=== PATIENT | female | born 1985 | race Asian ===

== ENCOUNTER 2016-11-17 11:36 | Outpatient (CLI) | payer OTHER ==
[~2016-11-17] VITALS: Ht 157.5 cm; Wt 66.8 kg
[2016-11-17 11:54] VITALS: Ht 157.5 cm; Wt 66.8 kg
[2016-11-17 11:58] VITALS: BP 112/79; PULSE 99; RESP 18
--- NOTE | 2016-11-17 13:32 | RADRPT ---
PROCEDURE: US OB. CLINICAL INDICATION: Size and dates , labor TECHNIQUE: Multiple sonographic images of the pelvis and gravid uterus were obtained. The images were reviewed on a PACS workstation. COMPARISON: No prior studies are available for comparison. FINDINGS: There is a single viable intrauterine gestation. Cardiac activity is present with 148 beats per min [place]. There is a vertex presentation. The placenta is posterior. There is no evidence for an abruption or placenta previa. There is a normal amount of amniotic fluid with an ANN = 19.1 cm. There is increased echogenicity of the amniotic fluid. Measurements were made in order to determine age. The results are as follows: BPD =9.5 cm HC =32.6 cm AC =33.7 cm FL =7.2 cm Estimated gestational age of approximately 37 weeks and 4 days based on ultrasound measurements. Clinical age: 37 weeks and 5 days. The estimated date of delivery is 12/04/2016, based on ultrasound measurements. The EFW = 3237 g, 55.8%, based on LMP age. RPTAT: AA IMPRESSION: Single viable intrauterine gestation of approximately 37 weeks and 4 days based on ultrasound measu rements. 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 Close follow-up is recommended. .Tima Samuels MD, Date Time Electronically viewed and signed by .Tima Samuels MD, MD on 11/17/2016 13:32 .S/
--- NOTE | 2016-11-17 14:55 | HP ---
Date/Time of Note Date/Time of Note DATE: 11/17/16 TIME: 14:51 OB - History Hx of Present Free Text/Dictation OB Triage Pt is a 30yo G1 at 37+5 who presents with c/o leaking of fluid for the last several days. Pt reports normal FM, denies VB, reports feeling some UCs. PROCEDURE: US OB. CLINICAL INDICATION: Size and dates , labor TECHNIQUE: Multiple sonographic images of the pelvis and gravid uterus were obtained. The images were reviewed on a PACS workstation. COMPARISON: No prior studies are available for comparison. FINDINGS: There is a single viable intrauterine gestation. Cardiac activity is present with 148 beats per minute. There is a vertex presentation. The placenta is posterior. There is no evidence for an abruption or placenta previa. There is a normal amount of amniotic fluid with an ANN = 19.1 cm. There is increased echogenicity of the amniotic fluid. Measurements were made in order to determine age. The results are as follows: BPD = 9.5 cm HC = 32.6 cm AC = 33.7 cm FL = 7.2 cm Estimated gestational age of approximately 37 weeks and 4 days based on ultrasound measurements. Clinical age: 37 weeks and 5 days. The estimated date of delivery is 12/04/2016, based on ultrasound measurements. The EFW = 3237 g, 55.8%, based on LMP age. RPTAT: AA IMPRESSION: Single viable intrauterine gestation of approximately 37 weeks and 4 days based on ultrasound measurements. 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 Close follow-up is recommended. Estimated Due Date: December 03, 2016 : 1 Care: Good Care Past Family/Social History * Past Medical, Surgical, Family and Obstetric Histories reviewed from chart. GBS Status: Negative OB Admission Exam Vital Signs Vital Signs Vital Signs Date Time Temp Pulse Resp B/P Pulse Ox O2 Delivery O2 Flow Rate FiO2 11/17/16 11:58 98.4 99 18 112/79 Room Air Physical Exam Amniotic Fluid: Other (SSE w/pooling of clear fluid, negative nitrazine x2, ROM Plus positive) Heart Rate: 140's Accelerations: Accelerations Present Decelerations: No Decelerations Varibility: Moderate Contractions on Admission: 6-10 Minutes Apart (irregular UCs) OB Assessment/Plan Other Assessment: No e/o ROM at term Other plan: Pt with normal ANN and neg nitrazine x2 despite positive ROM Plus. Will discharge home with outpatient f/up with Dr. Bailey on 11/20. Labor, ROM, FKC precautions reviewed with pt. Questions answered to her satisfaction. KATERINA MEDINA MD November 17, 2016 14:55
--- NOTE | 2016-11-17 16:55 | TRIAGE ---
OB Triage Datetime Report Generated by CPN: 11/17/2016 16:54 Datetime: 11/17/2016 14:23 Stage of : OB Triage Labor Evaluation Frequency: 2-4 Monitor Mode: External Duration (sec)2399: 60-100 Quality: Mild Resting Tone [place]: Relaxed Heart Rate FHR Baseline Rate: 135 Monitor Mode: External US FHR Baseline Changes: No Baseline Change Variability: Moderate 6-25 bpm Accelerations: 15X15 Decelerations: None Category: Category I Pain Assessment Pain Scale: 2 Pain Presence: Intermittent Pain Type: Cramping Pain Location: Abdomen Pain Goal: 2 Datetime: 11/17/2016 13:55 Stage of : OB Triage Datetime: 11/17/2016 13:00 Labor Evaluation Frequency: 5-6 Monitor Mode: External Duration (sec)2399: 60-80 Quality: Mild Pattern: Normal: <= 5 Contractions in 10 Minutes Resting Tone [place]: Relaxed Heart Rate FHR Baseline Rate: 135 Monitor Mode: External US FHR Baseline Changes: No Baseline Change Variability: Moderate 6-25 bpm Accelerations: 15X15 Decelerations: None Category: Category I Datetime: 11/17/2016 12:25 Stage of : OB Triage Assessment Type: Triage Time of Arrival: 11/17/2016 12:25 Arrived By: Wheelchair Arrived From: Office Chief Complaint: LEAKING CLEAR FLUID FROM VAGINA Movement: Present Contractions: Denies/Absent Contractions: 5 Rupture of Membranes: Unsure Vaginal Bleeding: None Vaginal Discharge: Present Recent Sexual Intercouse: Denies Abdominal Trauma: Not Applicable Patient Complaints: Other Initial Plan: NST/ROM +/CALL DR LAUREANO WITH RESULTS Maternal Assessment Level of Consciousness: Fully Conscious DTR's/Clonus: DTRs 2+; No Clonus Headache: Denies Blurred Vision: No Respiratory Effort: Unlabored; Regular Rhythm; Equal Expansion Breath Sounds, Left: Clear and Equal Breath Sounds, Right: Clear and Equal Nausea/Vomiting: Denies RUQ Epigastric Pain: Denies Lower Extremities Edema: None Upper Extremities Edema: None Facial Edema: None Fall Risk Assessment History of Falling: (0) No Secondary Diagnosis: (0) No Ambulatory Aid: (0) Bedrest/Nurse Assist IV Therapy: (0) No Gait: (0) Normal/Bedrest/Immobile Mental Status: (0) Oriented to Own Ability Fall Score: 0 Fall Risk Score Definition: No Risk: No action required Monitor Mode: External Monitor Mode: External US (Annotations: APPLIED)
== END 2016-11-17 15:15 | disposition home or self-care (01) ==
LOC: OBT 11:36 → L-D 11:37 → OBT 15:15
PROVIDERS: ATTEND Obstetrics & Gynecology
DX: O26.893 Other specified pregnancy related conditions, third trimester (principal); O62.9 Abnormality of forces of labor, unspecified; O60.03 Preterm labor without delivery, third trimester; Z3A.37 37 weeks gestation of pregnancy
CPT/HCPCS: 76815; 84112

== ENCOUNTER 2016-11-20 08:54 | Inpatient (IN) | payer OTHER ==
[~2016-11-20] VITALS: Ht 157.5 cm; Wt 68.4 kg
[2016-11-20] MEDS ORDERED: PRENAT PO (08:58)
[2016-11-20] MEDS ORDERED: FERR236T PO (08:58)
[2016-11-20] MEDS ORDERED: CALC600T11 PO (08:59)
[2016-11-20 09:15] VITALS: BP 117/78; PULSE 89; RESP 18
[2016-11-20] MEDS ORDERED: LACTATED RINGER'S 1,000 ML IV PRN (10:20)
[2016-11-20] MEDS ORDERED: AMPICILLIN 2 GM/NS (PMX) 100 ML IV ONE (10:30)
[2016-11-20] MEDS ORDERED: OXYTOCIN 30 UNITS/LR 500 ML IV PRN ×3 (10:30)
[2016-11-20] MEDS ORDERED: METHYLERGONOVINE 0.2 MG INJ IM PRN (10:30)
[2016-11-20] MEDS ORDERED: CARBOPROST 250 MCG INJ IM PRN (10:30)
[2016-11-20] MEDS ORDERED: LIDOCAINE 1% (MPF) 30 ML INJ INJ PRN (10:30)
[2016-11-20] MEDS ORDERED: MISOPROSTOL 200 MCG TAB PR PRN (10:30)
[2016-11-20] MEDS ORDERED: BUTORPHANOL 2 MG INJ IV PRN ×2 (10:30)
--- NOTE | 2016-11-20 10:49 | TRIAGE ---
OB Triage Datetime Report Generated by CPN: 11/20/2016 10:49 Datetime: 11/20/2016 10:29 Labor Evaluation Frequency: 2-5 Monitor Mode: External Duration (sec)2399: 50-80 Quality: Mild Pattern: Normal: <= 5 Contractions in 10 Minutes Resting Tone [place]: Relaxed Heart Rate FHR Baseline Rate: 150 FHR Baseline Changes: No Baseline Change Variability: Moderate 6-25 bpm Accelerations: 15X15 Decelerations: None Datetime: 11/20/2016 09:33 Vaginal Exam Dilatation (cms): 1.0 Effacement (%): 50 Station: -2 Exam By: CKUNIYOSHI Vaginal Bleeding: None Cervix, Consistency: Firm Cervix, Position: Posterior Datetime: 11/20/2016 09:31 Pool: Positive Nitrazine: Positive Datetime: 11/20/2016 09:17 Stage of : OB Triage Maternal Assessment Level of Consciousness: Fully Conscious Headache: Denies Blurred Vision: No Respiratory Effort: Unlabored; Regular Rhythm; Equal Expansion Breath Sounds, Left: Clear and Equal Breath Sounds, Right: Clear and Equal Nausea/Vomiting: Denies RUQ Epigastric Pain: Denies Lower Extremities Edema: None Degree: None Upper Extremities Edema: None Degree: None Facial Edema: None Temperature Route: Oral Fall Risk Assessment History of Falling: (0) No Secondary Diagnosis: (0) No Ambulatory Aid: (0) Bedrest/Nurse Assist IV Therapy: (0) No Gait: (0) Normal/Bedrest/Immobile Mental Status: (0) Oriented to Own Ability Fall Score: 0 Fall Risk Score Definition: No Risk: No action required Pain Assessment Pain Scale: 0 Pain Presence: None/Denies Pain Type: N/A Datetime: 11/20/2016 09:00 Time of Arrival: 11/20/2016 08:51 EGA: 38.1 Arrived By: Ambulatory Arrived From: Home Chief Complaint: LEAKING, CRAMPING EARLIER THIS AM, NONE NOW; PT REPORTS CHANGING SANITARY PAD 3 T IMES/DAY. Movement: Present Contractions: Denies/Absent Rupture of Membranes: Ruptured Vaginal Bleeding: Normal Show Vaginal Discharge: Present Recent Sexual Intercouse: Denies Abdominal Trauma: Not Applicable Patient Complaints: Other Additional Patient Complaints: PT SEEN IN TRIAGE ON 11/17: ROM+ POSITIVE, EFW: [id number] Time Provider Notified: 11/20/2016 09:43 Provider Notified: DR. RAI Initial Plan: EFM x2 Datetime: 11/17/2016 14:34 EGA: 37.5 Datetime: 11/17/2016 12:25 Fall Score: 0 Fall Risk Score Definition: No Risk: No action required
[2016-11-20] MEDS: LACTATED RINGER'S 1,000 ML IV SCH ×3 (11:15→23:37)
[2016-11-20 11:28] LABS: ADD SCAN DIFF NO
[2016-11-20 11:29] LABS: BASOPHILS % 0.2 % (0.0-2.0); EOSINOPHILS % 0.4 % (0.0-7.0); HEMATOCRIT 38.3 % (37.0-47.0); HEMOGLOBIN 12.7 g/dl (12.0-16.0); LYMPHOCYTES % 17.8 % (15.0-51.0); MEAN CORPUSCULAR HGB CONC 33.2 g/dl (32.0-37.0); MEAN CORPUSCULAR VOLUME 84.5 fl (82.0-101.0); MEAN PLATELET VOLUME 12.9 fl (7.4-10.4); MONOCYTE # 0.9 10^3/ul (0.3-0.9); MONOCYTES % 7.6 % (0.0-11.0); NEUTROPHIL # 8.4 10^3/ul (1.6-7.5); NEUTROPHILS % 73.4 % (39.0-77.0); PLATELET COUNT 145 10^3/UL (140-415); RED BLOOD COUNT 4.53 10^6/ul (4.20-5.40); RED CELL DISTRIBUTION WIDTH 13.5 % (11.5-14.5); WHITE BLOOD COUNT 11.4 10^3/ul (4.8-10.8)
--- NOTE | 2016-11-20 11:37 | RADRPT ---
PROCEDURE: US OB. CLINICAL INDICATION: Contractions TECHNIQUE: Multiple sonographic images of the pelvis were obtained. Transabdominal imaging only w as performed. The images were reviewed on a PACS workstation. COMPARISON: 11/17/2016 FINDINGS: Single intrauterine gestation. Cephalic presentation. heart rate is 132 bpm. Measurements were made in order to determine age. The results are as follows: BPD = 9.48 cm HC = 33.65 cm AC = 34.70 cm FL = 7.51 cm Gestational age is 38 weeks 4 days and FÁTIMA is 11/30/2016 by ultrasound criteria. Gestational age is 38 weeks 1 day and FÁTIMA is 12/03/2016 by LMP. EFW = 3531 g +/- 530 g (74 %). The placenta is anterior fundal. There is no evidence for an abruption or placenta previa. IMPRESSION: 1. Single live intrauterine gestation of approximately 38 weeks 4 days by ultrasound criteria. RPTAT: QQ .Francisco Delgado MD, MD Date Time Electronically viewed and signed by .Francisco Delgado MD, on 11/20/2016 11:37 .R/
[2016-11-20] MEDS: OXYTOCIN 30 UNITS/LR 500 ML IV SCH (11:48)
[2016-11-20 11:49] LABS: INR 0.96; PROTIME 12.8 Sec (12.2-14.2)
[2016-11-20] MEDS: AMPICILLIN 1 GM/NS (PMX) 50 ML IV SCH ×3 (16:06→22:00)
[2016-11-20] MEDS ORDERED: FENTAnyl 2MCG/ML-ROPIV 0.2% 100 ML ONE (17:58)
[2016-11-20] MEDS ORDERED: NALOXONE (0.4 MG/ML) INJ IV PRN (18:30)
[2016-11-20] MEDS ORDERED: FENTAnyl 2MCG/ML-ROPIV 0.2% 100 ML BAG EPI SCH (18:30)
[2016-11-20] MEDS ORDERED: DIPHENHYDRAMINE 50 MG INJ IV PRN (18:30)
[2016-11-20] MEDS ORDERED: ONDANSETRON 4 MG INJ IV PRN (18:30)
[2016-11-21] MEDS ORDERED: FENTAnyl 50 MCG/ML VIAL IV ONE (00:42)
[2016-11-21] MEDS ORDERED: FENTAnyl 50 MCG/ML VIAL ONE (00:46)
[2016-11-21] MEDS: OXYTOCIN 30 UNITS/LR 500 ML IV SCH (00:59)
--- NOTE | 2016-11-21 02:19 | LDN ---
Date/Time of Note Date/Time of Note DATE: 11/21/16 TIME: 02:04 Delivery Summary Pt pushed x2hrs to of liveborn female infant with Apgars of 9/9 and weight of 3250g. head delivered from ROP position. A loose nuchal cord x1 was reduced following delivery of the head. The remainder of the delivery was uncomplicated and was placed on mother's abdomen, suctioned and dried immediately following delivery. Cord was doubly clamped and cut after intentional delay. The placenta with an intact 3VC spontaneously delivered shortly thereafter. Inspection of the vagina and perineum revealed a 3b laceration which was repaired using end-to-end method with interrupted sutures to bring the ends back together. The 2nd degree laceration was repaired in the usual fashion. Appropriate hemostasis was obtained with the repair. A rectal exam was done several times throughout the repair and after completion of the repair to ensure the rectal mucosa was intact and had not been compromised with suture. The patient was given 2g IV Ancef x1 for ppx following delivery and started on a bowel regimen. Weeks of Gestation 38+1 Placenta Delivered: Spontaneously Meconium: none Episiotomy: No Perineal laceration: 3 Laceration repair: 2-0 and 3-0 Vicryl Anesthesia type: Epidural (with local anesthetic for the repair) Estimated blood loss: 400 Sponge & Needle done & correct: Yes All needle counts correct: Yes Any foreign bodies felt in the: No Problems: Delivery Information Sex Sex: female Apgars 1 Minute: 9 5 Minute: 9 Suctioning Nose & mouth suctioned at william: No Delee suction performed: No Umbilical Cord Umbilical cord with: 3 Vessels Cord presentations: nuchal cord Nuchal cord present X: 1 Cord Blood was obtained: Yes Mother & Baby Disposition Disposition Mom & Baby to Maternity; Good: Yes Baby to NICU: No KATERINA MEDINA MD November 21, 2016 02:18
[2016-11-21] MEDS ORDERED: BENZOCAINE 20% 56 ML SPRAY TOP PRN (02:30)
[2016-11-21] MEDS ORDERED: WITCH HAZEL/GLYCERIN PAD PR PRN (02:30)
[2016-11-21] MEDS: SENNA/DOCUSATE NA (8.6MG/50MG) TAB PO SCH ×3 (02:30→21:10)
[2016-11-21] MEDS ORDERED: MISOPROSTOL 200 MCG TAB PR PRN (02:30)
[2016-11-21] MEDS: IBUPROFEN 600 MG TAB PO SCH ×5 (02:30→23:53)
[2016-11-21] MEDS ORDERED: CEFAZOLIN 2 GM/50 ML (PMX) 50 ML IV ONE (02:30)
[2016-11-21] MEDS ORDERED: DIPHENHYDRAMINE 50 MG INJ IV PRN (02:30)
[2016-11-21] MEDS ORDERED: METHYLERGONOVINE 0.2 MG INJ IM PRN (02:30)
[2016-11-21] MEDS ORDERED: OXYTOCIN 30 UNITS/LR 500 ML IV PRN (02:30)
[2016-11-21] MEDS ORDERED: LANOLIN 7 GM TUBE TOP PRN (02:30)
[2016-11-21] MEDS ORDERED: ONDANSETRON 4 MG INJ IV PRN (02:30)
[2016-11-21] MEDS ORDERED: CARBOPROST 250 MCG INJ IM PRN (02:30)
[2016-11-21] MEDS ORDERED: ACETAMINOPHEN 325 MG TAB PO PRN (02:30)
[2016-11-21] MEDS ORDERED: DIBUCAINE 1% 30 GM OINT PR PRN (02:30)
[2016-11-21] MEDS: LACTATED RINGER'S 1,000 ML IV* SCH ×2 (03:26→10:19)
[2016-11-21 03:30] VITALS: BP 138/77; PULSE 58; RESP 20
[2016-11-21 07:27] LABS: ADD SCAN DIFF NO
[2016-11-21 07:43] LABS: ABNORMAL IP MESSAGE 1; BASOPHILS % 0.1 % (0.0-2.0); HEMATOCRIT 33.3 % (37.0-47.0); HEMOGLOBIN 10.8 g/dl (12.0-16.0); LYMPHOCYTES # 1.5 10^3/ul (0.8-2.9); LYMPHOCYTES % 9.8 % (15.0-51.0); MEAN CORPUSCULAR HEMOGLOBIN 27.9 pg (29.0-33.0); MEAN CORPUSCULAR HGB CONC 32.4 g/dl (32.0-37.0); MEAN PLATELET VOLUME 13.2 fl (7.4-10.4); MONOCYTE # 0.9 10^3/ul (0.3-0.9); MONOCYTES % 5.8 % (0.0-11.0); NEUTROPHIL # 12.4 10^3/ul (1.6-7.5); NEUTROPHILS % 83.6 % (39.0-77.0); PLATELET COUNT 117 10^3/UL (140-415); RED BLOOD COUNT 3.87 10^6/ul (4.20-5.40); RED CELL DISTRIBUTION WIDTH 13.8 % (11.5-14.5); WHITE BLOOD COUNT 14.8 10^3/ul (4.8-10.8)
[2016-11-21 08:30] VITALS: BP 114/64; PULSE 98; RESP 20
[2016-11-21 12:21] VITALS: BP 93/63; PULSE 85; RESP 18
[2016-11-21 15:31] VITALS: BP 107/66; PULSE 86
[2016-11-21 19:50] VITALS: BP 116/75; PULSE 81; RESP 21
[2016-11-22 03:50] VITALS: BP 104/54; PULSE 71; RESP 18
[2016-11-22] MEDS: IBUPROFEN 600 MG TAB PO SCH ×3 (05:29→17:45)
--- NOTE | 2016-11-22 05:38 | PREOPHP ---
DATE OF ADMISSION: 11/20/2016 HISTORY OF PRESENT ILLNESS: This is a 30-year-old lady, 1, EDC 12/03/2016 at 38 and 1 [facility]. She is a 2, para 0. She was admitted in labor. She had care in [facility] and the care was uneventful. The patient claims that she had been leaking with bag of water for 3 days, but when she came 2 days ago, she was checked by the laborist, and there was no l eaking noted. The ANN was normal, so she was sent home. At this time, she came that she started to have a lot of water coming out since 8:00 p.m. on 11/19/2016 followed by strong contractions, so cesar gibson came to the hospital. PAST PERSONAL HISTORY: No history of diabetes, TB, asthma. ALLERGIES: NO ALLERGIES. SOCIAL HISTORY: Patient does not smoke. She does not drink. MEDICATIONS: She does not take any drugs except her iron and vitamins. GYNECOLOGIC HISTORY: She had menarche at the age of 16, every 28 days interval, 3 to 4 days duratio n, and moderate in amount. FAMILY HISTORY: Father has diabetes. Mother has hypertension. Her father has heart disease as wel l. REVIEW OF SYSTEMS: CARDIOVASCULAR: No chest pains. RESPIRATORY: No cough. GASTROINTESTINAL: No diarrhea, no vomiting. GENITOURINARY: No dysuria. PHYSICAL EXAMINATION: GENERAL: Reveals a conscious coherent lady and in not acute distress. VITAL SIGNS: Her blood pressure 120/80, pulse rate 80 per minute, respirations 16 per minute. BREASTS: Within normal limits. HEART: Within normal limits. LUNGS: Within normal limits. ABDOMEN: Soft, fundic height 36 cm. heart tones 140 per minute. PELVIC: At 4:55 p.m. done by ma on 11/20/2016 revealed the cervix to be 3 cm dilated, 100% effaced, station 0 in cephalic presentation with the bag of water ruptured. Nitrazine test was positive. EXTREMITIES: No pedal edema. ADMITTING DIAGNOSIS: 38 and 1/7 weeks intrauterine in labor with prolonged ruptured bag o f water. PLAN: The patient was planned to have prophylactic antibiotics. The plans of the delivery were ex plained to the patient as to go for vaginal delivery. The risks, benefits, and alternatives of vagi nal delivery, a was explained to her. The patient wanted to go for a vaginal delivery, so she was given Pitocin augmentation. The different analgesia's were explained to the patient and so she was given Pitocin augmentation. The patient progressed well when the patient went into complet e dilatation. I requested to Dr. Pinedo to deliver the baby. Dictated By: SUGEY MAY/YVONNE Conf#: [id number] DID#: [id number]
[2016-11-22 08:19] LABS: ADD SCAN DIFF NO
[2016-11-22 08:25] VITALS: BP 121/85; PULSE 65; RESP 19
[2016-11-22 08:27] LABS: BASOPHILS % 0.3 % (0.0-2.0); EOSINOPHILS # 0.2 10^3/ul (0.0-0.5); EOSINOPHILS % 1.5 % (0.0-7.0); HEMOGLOBIN 9.9 g/dl (12.0-16.0); LYMPHOCYTES # 2.1 10^3/ul (0.8-2.9); LYMPHOCYTES % 17.5 % (15.0-51.0); MEAN CORPUSCULAR HEMOGLOBIN 27.2 pg (29.0-33.0); MEAN CORPUSCULAR HGB CONC 31.9 g/dl (32.0-37.0); MEAN CORPUSCULAR VOLUME 85.2 fl (82.0-101.0); MEAN PLATELET VOLUME 12.5 fl (7.4-10.4); MONOCYTE # 0.8 10^3/ul (0.3-0.9); MONOCYTES % 6.5 % (0.0-11.0); NEUTROPHIL # 8.6 10^3/ul (1.6-7.5); NEUTROPHILS % 73.5 % (39.0-77.0); PLATELET COUNT 111 10^3/UL (140-415); RED BLOOD COUNT 3.64 10^6/ul (4.20-5.40); RED CELL DISTRIBUTION WIDTH 13.6 % (11.5-14.5); WHITE BLOOD COUNT 11.7 10^3/ul (4.8-10.8)
[2016-11-22] MEDS: SENNA/DOCUSATE NA (8.6MG/50MG) TAB PO SCH ×2 (08:54→20:33)
[2016-11-22 16:15] VITALS: BP 123/77; PULSE 73; RESP 18
[2016-11-22 19:10] VITALS: BP 138/80; PULSE 67; RESP 18
[2016-11-23] MEDS: IBUPROFEN 600 MG TAB PO SCH ×2 (00:04→06:18)
[2016-11-23 04:00] VITALS: BP 130/80; RESP 86
[2016-11-23 08:00] VITALS: BP 132/88; PULSE 68; RESP 16
[2016-11-23] MEDS ORDERED: DIPHTH/TET/ACEL PERTUSS (ADULT) 0.5 ML VIAL IM* ONE (09:00)
[2016-11-23] MEDS: SENNA/DOCUSATE NA (8.6MG/50MG) TAB PO SCH (09:24)
--- NOTE | 2016-11-23 10:02 | DS ---
Date/Time of Note Date/Time of Note DATE: 11/23/16 TIME: 10:00 Obstetrical Discharge Record Final Diagnosis Final Diagnosis: Term delivered Vaginal Delivery Obstetrical Delivery: Spontaneous Condition on Discharge Physical Assessment Voiding: Yes Bowel Movement: Yes Breast: Soft, non-tender Fundus: Firm Episiotomy: Fiest degree laceration is healing well Current Medications Medications (Trade) Dose Ordered Sig/Carol Route PRN Reason Start Time Stop Time Status Last Admin Dose Admin Lactated Ringer's 1,000 ml @ 125 mls/hr Q8H IV 11/20/16 10:20 11/21/16 02:25 DC 11/20/16 23:37 Ampicillin 100 ml @ 100 mls/hr ONCE ONCE IV 11/20/16 10:30 11/20/16 11:29 DC 11/20/16 11:36 Ampicillin 50 ml @ 100 mls/hr Q4H IV 11/20/16 14:00 11/21/16 02:25 DC 11/20/16 20:06 Oxytocin/Lactated Ringer's 500 ml @ 0 mls/hr TITRATE IV 11/20/16 10:30 11/21/16 02:25 DC 11/21/16 00:59 Butorphanol Tartrate (Stadol) 1 mg Q2H PRN IV PAIN 11/20/16 10:30 11/21/16 02:25 DC Butorphanol Tartrate (Stadol) 2 mg Q2H PRN IV PAIN 11/20/16 10:30 11/21/16 02:25 DC Lidocaine 30 ml 30 ml ONCE PRN INJ EPISIOTOMY/TEARING 11/20/16 10:30 11/21/16 02:25 DC Oxytocin/Lactated Ringer's 500 ml @ 0 mls/hr ONCE -MAY REPEAT X1 PRN IV POST DELIVERY 11/20/16 10:30 11/21/16 02:25 DC Oxytocin/Lactated Ringer's 500 ml @ 125 mls/hr ONCE PRN IV POST DELIVERY 11/20/16 10:30 11/21/16 02:25 DC Lactated Ringer's 1,000 ml @ 2,000 mls/hr Q30M PRN IV PRE-EPIDURAL BOLUS 11/20/16 10:20 11/21/16 02:25 DC 11/20/16 17:45 Oxytocin/Lactated Ringer's 500 ml @ 0 mls/hr ONCE PRN IV For Hemorrhage Management 11/20/16 10:30 11/21/16 02:25 DC Methylergonovine Maleate (Methergine) 0.2 mg ONCE PRN IM VAGINAL BLEEDING 11/20/16 10:30 11/21/16 02:25 DC Carboprost Tromethamine (Hemabate) 250 mcg ONCE PRN IM VAGINAL BLEEDING 11/20/16 10:30 11/21/16 02:25 DC Misoprostol 1000 mcg 1,000 mcg ONCE PRN MS VAGINAL BLEEDING 11/20/16 10:30 11/21/16 02:25 DC Fentanyl/ Ropivacaine 100 ml @ ud STK-MED ONCE .ROUTE 11/20/16 17:58 11/20/16 17:59 DC Naloxone HCl (Narcan) 0.1 mg Q2M PRN IV FOR RESP RATE 8 OR LESS 11/20/16 18:30 11/21/16 18:29 DC Diphenhydramine HCl (Benadryl) 25 mg Q6H PRN IV ITCHING 11/20/16 18:30 11/21/16 18:29 DC Ondansetron HCl (Zofran Inj) 4 mg Q6H PRN IV NAUSEA AND/OR VOMITING 11/20/16 18:30 11/21/16 18:29 DC Fentanyl/ Ropivacaine 100 ml EPIDURAL INFUSION EPI 11/20/16 18:30 Fentanyl (Sublimaze) 50 mcg ONCE ONCE IV 11/21/16 00:42 11/21/16 00:48 DC 11/21/16 00:50 Fentanyl 100 mcg 100 mcg STK-MED ONCE .ROUTE 11/21/16 00:46 11/21/16 00:47 DC Lactated Ringer's 1,000 ml @ 125 mls/hr Q8H IV* 11/21/16 02:19 11/22/16 05:31 DC 11/21/16 03:26 Cefazolin Sodium/ Dextrose (Ancef 2 Gm/50 ml (Pmx)) 50 ml @ 100 mls/hr ONCE ONCE IV 11/21/16 02:30 11/21/16 02:59 DC 11/21/16 03:26 Ibuprofen (Motrin) 600 mg Q6 PO 11/21/16 02:30 11/23/16 06:18 Ondansetron HCl (Zofran Inj) 4 mg Q6H PRN IV NAUSEA AND/OR VOMITING 11/21/16 02:30 Diphenhydramine HCl (Benadryl) 25 mg Q6H PRN IV PRURITUS 11/21/16 02:30 Senna/Docusate Sodium (Senokot-S) 1 tab BID PO 11/21/16 02:30 11/23/16 09:24 Witch Shiela/ Glycerin (Tucks Pads) 1 pad BEDSIDE MEDICATION PRN MS HEMORRHOID/EPISIOTMY PAIN 11/21/16 02:30 11/21/16 03:26 Benzocaine (Dermoplast [place]) 1 spray BEDSIDE MEDICATION PRN TOP HEMORRHOID/EPISIOTMY PAIN 11/21/16 02:30 11/21/16 03:26 Dibucaine (Nupercainal) 1 applic BEDSIDE MEDICATION PRN MS HEMORRHOID/EPISIOTMY PAIN 11/21/16 02:30 Lanolin (Dto-V-Pudqdb) 1 applic BEDSIDE MEDICATION PRN TOP BEDSIDE FOR SUSIE TO NIPPLES 11/21/16 02:30 Diphtheria/ Tetanus/Acell Pertussis (Adacel) 0.5 ml ONCE ONCE IM* 11/23/16 09:00 11/23/16 09:01 DC Acetaminophen 650 mg 650 mg Q4H PRN PO ELEVATED TEMPERATURE 11/21/16 02:30 Oxytocin/Lactated Ringer's 500 ml @ 0 mls/hr ONCE PRN IV For Hemorrhage Management 11/21/16 02:30 Methylergonovine Maleate (Methergine) 0.2 mg ONCE PRN IM VAGINAL BLEEDING 11/21/16 02:30 Carboprost Tromethamine (Hemabate) 250 mcg ONCE PRN IM VAGINAL BLEEDING 11/21/16 02:30 Misoprostol (Cytotec) 1,000 mcg ONCE PRN MS VAGINAL BLEEDING 11/21/16 02:30 Calf Tenderness: No Patient Condition: Good KEREN WOOTEN MD November 23, 2016 10:02
== END 2016-11-23 13:20 | disposition home or self-care (01) | DRG 775 ==
LOC: L-D 08:54 → OBT 08:54 → L-D 10:11 → PP1 11-21 02:49
PROVIDERS: ADMIT Obstetrics & Gynecology; ATTEND Obstetrics & Gynecology
PROC: 10E0XZZ Delivery of Products of Conception, External Approach (ICD-10-PCS; principal; 2016-11-21)
PROC: 0DQR0ZZ Repair Anal Sphincter, Open Approach (ICD-10-PCS; 2016-11-21)
PROC: 3E00X4Z Introduction of Serum, Toxoid and Vaccine into Skin and Mucous Membranes, External Approach (ICD-10-PCS; 2016-11-23)
DX: O69.81X0 Labor and delivery complicated by cord around neck, without compression, not applicable or unspecified (principal); O70.20 Third degree perineal laceration during delivery, unspecified; Z23 Encounter for immunization; Z3A.38 38 weeks gestation of pregnancy; Z37.0 Single live birth
CPT/HCPCS: 62319; 76815; 84112; 85025; 85610; 85730; 86592; 86900; 86901; 90715; G0463; J0290; J0690; J2590; J3010; J7120